=== PATIENT | female | born 1980 ===

== ENCOUNTER 2018-08-03 06:07 | Day surgery (SDC) | payer MEDICAID ==
[2018-08-01 11:22] VITALS: BMI 34.7
[2018-08-03] MEDS ORDERED: Lactated Ringer's 1,000 ML IV SCH (07:15)
[2018-08-03] MEDS ORDERED: Midazolam 2 MG/2 ML VIAL ONE (07:22)
[2018-08-03] MEDS ORDERED: Propofol 10 mg/ml Inj (20 ML) ONE (07:23)
[2018-08-03] MEDS ORDERED: Sevoflurane - Inhalation Anesthetic Liq (250 ml) ONE (07:28)
[2018-08-03] MEDS: Bupivacaine 0.5% 50 ML IJ ONE ×2 (07:47→08:37)
[2018-08-03] MEDS ORDERED: Phenylephrine 10 mg/ml Inj ONE (07:59)
[2018-08-03] MEDS ORDERED: Oxycodone/Acetaminophen 5/325 mg Tab PO PRN ×2 (08:55)
[2018-08-03] MEDS ORDERED: HYDROmorphone 1 mg/ml ISec IVP PRN (08:56)
--- NOTE | 2018-08-03 09:01 | PCM.SURG1 ---
Surgeon's Initial Post Op Note - Surgeon's Notes Surgeon: Dr. Eyal Hamlin, DPM [employer] Operator: Dr. Hazel Bellamy, PGY1 Type of Anesthesia: IV Sedation Anesthesia Administered By: Dr. Ge Pre-Operative Diagnosis: Left foot neuroma Operative Findings: See Dictation. I: 10 cc of 0.5% marcaine plain. M: 3-0 Vicryl, 4-0 Vicryl, 4-0 Monocril Post-Operative Diagnosis: Left foot soft tissue mass Operation Performed: Left soft tissue mass excision Specimen/Specimens Removed: Soft tissue mass from left foot Estimated Blood Loss: EBL {In ML}: 1 Blood Products Given: N/A Drains Used: No Drains Post-Op Condition: Good Date of Surgery/Procedure: 08/03/18 Time of Surgery/Procedure: 09:00
[2018-08-03 09:10] VITALS: TEMP 98
[2018-08-03 10:09] VITALS: RESP 20
[2018-08-03 10:28] VITALS: BP 121/80; PULSE 72; O2SAT 100
--- NOTE | 2018-08-08 10:29 | OP ---
PROCEDURE DATE: 08/03/2018 SURGEON: Eyal Hamlin DPM SENIOR DATABASE ADMINISTRATOR: Scar Galvez PGY1 PHOTOENGRAVING SKETCH MAKER: Adalberto Ge MD ANESTHESIA: IV sedation and local. PREOPERATIVE DIAGNOSIS: Painful neuroma, left foot POSTOPERATIVE DIAGNOSIS: Painful soft tissue mass, left foot. PROCEDURE: Excision of soft tissue mass, left foot. INDICATIONS: The patient is a 37-year-old female with the above diagnosis. The patient has exhausted all conservative treatments at this time and now requires surgical intervention. The patient signed the consent after careful explanation of risks, benefits, complications, and alternatives for surgical procedure. No guarantees were given nor implied. N.p.o. status was confirmed prior to taking the patient to OR. PREPARATION: The patient was brought to the operating room and placed on the operating room table in the supine position. A well padded pneumatic ankle tourniquet was placed on the patient's left ankle in a super malleolar position. After induction of IV sedation, the patient was given a total of 10 mL of 0.5% Marcaine plain in a local block fashion in the left foot. Once local anesthesia was achieved, the left foot was then prepped and draped in the usual sterile manner. Esmarch was utilized to exsanguinate the patient's left foot. A pneumatic ankle tourniquet was inflated to 250 mmHg and the procedure began. DESCRIPTION OF PROCEDURE: Attention was directed to the dorsal aspect of the left foot where a linear incision was made over the first interspace. Using blunt dissection, dissection was continued down to the deep subcutaneous tissue layers. It should be noted that care was taken to identify and retract all vital neurovascular structures. All bleeders were cauterized and ligated as necessary. Upon dissection, a soft tissue mass was noted. Carefully the soft tissue mass was held with an Allis forceps and using blunt dissection, the soft tissue mass was excised and passed from the operating field. The soft tissue mass was removed in toto. The area was irrigated with copious amounts of normal sterile saline. The subcutaneous tissue was then re-approximated using a #4-0 and 3-0 Vicryl. The subcuticular tissue was then re-approximated using a 4-0 Monocryl. At that time, 10 mL of 0.5% Marcaine plain was injected into the first interspace and proximally to the dorsal aspect of the foot in a local block fashion. The foot was then dressed with steri-strips, xeroform, Betadine, and dry sterile dressing. The tourniquet was then deflated and the procedure ended with good hyperemic response noted to LLE. POSTOPERATIVE CONDITION: The patient tolerated the anesthesia and procedure well and was then escorted to the recovery room with vital signs stable and neurovascular status intact to the left foot. The patient will follow up with Dr. Hamlin in his office within one week on 08/08/2018. SCAR GALVEZ Eyal Hamlin DPM MTDCharbel
== END 2018-08-03 10:50 | disposition home or self-care (01) ==
LOC: SDS 06:07
PROVIDERS: ATTEND Podiatrist Foot & Ankle Surgery
DX: D48.1 Neoplasm of uncertain behavior of connective and other soft tissue (principal)
CPT/HCPCS: 28039; 84703; 88307; J1100; J1170; J2001; J2250; J2370; J2405; J2704; J2765; J3010; J7120 ×2